=== PATIENT | female | born 1960 | race African-American/Black ===

== ENCOUNTER 2019-04-15 08:29 | Outpatient (CLI) | payer BC ==
[2019-04-15] VITALS (11 sets, daily range): BP systolic 126–177; BP diastolic 62–96
[~2019-04-15] VITALS: Ht 165.1 cm; Wt 92.1 kg
[~2019-04-15 08:29] MED LIST: LIDOCAINE WITH 8.4% SOD BICARB 3 ML DISP.SYRIN. ONE
[2019-04-15] MEDS ORDERED: HYDR-2868 PO (09:00)
[2019-04-15] MEDS ORDERED: CALC0.25 PO (09:00)
[2019-04-15] MEDS ORDERED: INSU300I SQ (09:00)
[2019-04-15] MEDS ORDERED: AMLO1TAB PO (09:00)
[2019-04-15] MEDS ORDERED: METO-239 PO (09:00)
[2019-04-15] MEDS ORDERED: EZET10TA20 PO (09:00)
[2019-04-15] MEDS ORDERED: LEVO125T PO (09:00)
[2019-04-15] MEDS ORDERED: LISI1TAB19 PO (09:00)
[2019-04-15] MEDS ORDERED: NITR0.4T22 SL (09:00)
[2019-04-15] MEDS ORDERED: ISOS60TA2 PO (09:00)
[2019-04-15] MEDS ORDERED: ASPI-630 PO (09:00)
[2019-04-15] MEDS ORDERED: INSU100V6 SQ (09:00)
[2019-04-15 09:23] LABS: BASO % 1 % (0-3); EOS # 0.2 x10^3/uL (0.0-0.7); EOS % 3 % (0-3); HEMATOCRIT 30.2 % (36.0-47.0); HEMOGLOBIN 10.3 g/dL (12.0-15.5); LYMPH # 2.8 x10^3/uL (1.0-4.8); LYMPH % 45 % (24-48); MEAN CORPUSCULAR HEMOGLOBIN 32 pg (25-35); MEAN CORPUSCULAR HGB CONC 34 g/dL (31-37); MEAN CORPUSCULAR VOLUME 93 fL (79-100); MONO # 0.7 x10^3/uL (0.0-1.1); MONO % 11 % (0-9); NEUT # 2.5 x10^3/uL (1.8-7.7); NEUT % 40 % (31-73); PLATELET COUNT 262 x10^3/uL (140-400); RED BLOOD COUNT 3.23 x10^6/uL (3.50-5.40); RED CELL DISTRIBUTION WIDTH 13.4 % (11.5-14.5); WHITE BLOOD COUNT 6.2 x10^3/uL (4.0-11.0)
[2019-04-15 09:37] LABS: PROTHROMBIN TIME PATIENT 12.5 SEC (11.7-14.0)
[2019-04-15] MEDS ORDERED: fentaNYL PF VIAL 100 MCG/2 ML VIAL ONE (10:06)
[2019-04-15] MEDS ORDERED: MIDAZOLAM HCL/PF 2 MG/2 ML VIAL. ONE (10:06)
[2019-04-15] MEDS ORDERED: LIDOCAINE WITH 8.4% SOD BICARB 3 ML DISP.SYRIN. ONE (10:25)
[2019-04-15] MEDS ORDERED: fentaNYL PF VIAL 100 MCG/2 ML VIAL IV ONE (11:00)
[2019-04-15] MEDS ORDERED: MIDAZOLAM HCL/PF 2 MG/2 ML VIAL. IV ONE (11:00)
[2019-04-15] MEDS ORDERED: LIDOCAINE WITH 8.4% SOD BICARB 3 ML DISP.SYRIN. IJ ONE (11:00)
--- NOTE | 2019-04-15 12:18 | NUR ---
Discharge Note: JUDIT MOORE Discharge instructions and discharge home medications reviewed with Patient and a copy given. All questions have been answered and understanding verbalized. The following instructions and handouts were given: moderate sedation and bone marrow biopsy aftercare Discontinued lines and drains: Peripheral IV intact. Patient discharged to Home or Self Care withFamily Membervia Wheelchair
--- NOTE | 2019-04-16 13:59 | RAD ---
CT-guided bone marrow biopsy. 04/16/2019 11:55 AM Indication: MGUS Discussion: The risks and benefits of the procedure, including but not limited to, bleeding and infection were discussed patient. Informed consent was obtained. The patient was brought to the CT scanner and placed in the prone position. A timeout procedure was performed. Heater Worker CT imaging of the pelvis demonstrated left ilium amenable to bone marrow biopsy. The overlying soft tissues were prepped and draped using maximum sterile barrier technique. 1% lidocaine without epinephrine was administered for local anesthesia. Under intermittent CT guidance, an OncControl needle was advanced into the bone marrow of the left iliac crest. 2 Aspirates and 1 core biopsy samples were obtained. Samples were delivered to pathology was present at the time of procedure. The needle was removed and manual pressure held to achieve hemostasis. No immediate complications were identified. The procedure was performed under conscious sedation including continuous cardiopulmonary monitoring via dedicated sedation nurse. Sedation time: 20 minutes Impression: Successful CT-guided bone marrow biopsy of the left iliac crest . PQRS Compliance Statement: One or more of the following individualized dose reduction techniques were utilized for this examination: 1. Automated exposure control 2. Adjustment of the mA and/or kV according to patient size 3. Use of iterative reconstruction technique
== END 2019-04-15 12:30 | disposition home or self-care (01) ==
LOC: INTRAD 08:29
PROVIDERS: ATTEND Internal Medicine Hematology & Oncology
DX: D47.2 Monoclonal gammopathy (principal); D63.1 Anemia in chronic kidney disease; N18.4 Chronic kidney disease, stage 4 (severe); Z88.1 Allergy status to other antibiotic agents; Z88.7 Allergy status to serum and vaccine; Z88.8 Allergy status to other drugs, medicaments and biological substances
CPT/HCPCS: 36415; 38222; 77012; 85025; 85610; 88184; 88185; 88237; 99152; J2250; J3010